=== PATIENT | male | born 1995 | race Two or more races ===

== ENCOUNTER 2017-01-05 20:30 | Emergency (ER) | payer SELFPAY ==
[2017-01-05 21:17] LABS: BASO % 0 % (0-3); EOS % 1 % (0-3); HEMATOCRIT 42.8 % (39.0-53.0); HEMOGLOBIN 14.5 g/dL (13.0-17.5); LYMPH # 1.9 x10^3/uL (1.0-4.8); LYMPH % 18 % (24-48); MEAN CORPUSCULAR HEMOGLOBIN 32 pg (25-35); MEAN CORPUSCULAR HGB CONC 34 g/dL (31-37); MEAN CORPUSCULAR VOLUME 95 fL (79-100); MONO % 6 % (0-9); NEUT % 74 % (31-73); PLATELET COUNT 164 x10^3/uL (140-400); RED BLOOD COUNT 4.52 x10^6/uL (4.30-5.70); RED CELL DISTRIBUTION WIDTH 14.3 % (11.5-14.5); WHITE BLOOD COUNT 10.5 x10^3/uL (4.0-11.0)
[2017-01-05 21:18] LABS: BILIRUBIN,URINE SMALL (NEG); GLUCOSE,URINE NEGATIVE (NEG); NITRITE,URINE NEGATIVE (NEG); PH,URINE 5.5; PROTEIN,URINE 30 mg/dL (NEG-TRACE); UROBILINOGEN,URINE 0.2 mg/dL (0.2 mg/dL)
[2017-01-05 21:24] LABS: BARBITURATES NEG (NEG); BENZODIAZEPINES POS (NEG); CANNABINOIDS NEG (NEG); COCAINE NEG (NEG); METHADONE NEG (NEG); OPIATES POS (NEG); PHENCYCLIDINE NEG (NEG)
[2017-01-05 21:27] LABS: CALCIUM 8.4 mg/dL (8.5-10.1); CREATININE 0.7 mg/dL (0.7-1.3); GFR 143.8
[2017-01-05 21:28] LABS: BACTERIA,URINE FEW /HPF (0-FEW); RBC,URINE OCC /HPF (0-2)
[2017-01-05] MEDS ORDERED: NALOXONE 0.4 MG/ML VIAL. IV ONE (21:30)
[2017-01-05] MEDS ORDERED: IV NORMAL SALINE 1000ML BAG 1,000 ML IV ONE (21:30)
[2017-01-05 21:34] LABS: ALBUMIN 4.2 g/dL (3.4-5.0); ALBUMIN/GLOBULIN RATIO 1.4 (1.0-1.7); TOTAL BILIRUBIN 0.5 mg/dL (0.2-1.0); TOTAL PROTEIN 7.2 g/dL (6.4-8.2)
[2017-01-05] MEDS ORDERED: POTASSIUM CHLORIDE 20 MEQ TABLET.ER. PO ONE (22:15)
[2017-01-05 23:56] VITALS: BP 109/57
--- NOTE | 2017-01-06 00:07 | PHYS DOC ---
Past Medical History Past Medical History: Anxiety Past Surgical History: No Surgical History Alcohol Use: None Drug Use: Heroin Adult General Chief Complaint Chief Complaint: ALTERED MENTAL STATUS HPI HPI Patient is a 21 year old gentleman who came in secondary to being found in his car unresponsive. Patient was given intranasal Narcan with some improvement in his symptoms prior to arrival to the ER. Upon arrival to the ER the patient is pretty somewhat however he is arousable. Patient denies any other symptomatology. Patient reports that he has gone through detox in the past and he recently started shooting up her when recently. Patient denies any fevers shakes chills nausea vomiting diarrhea chest pain shortness of breath cough cold runny nose. Patient denies any other new symptomatology. Patient denies any past medical history. Patient has any history of hypertension diabetes liver longer kidney pals. Patient reports she's on seroquel. Patient denies any trauma or any pains anywhere else. Patient's been reevaluated multiple times in the ER. Patient is more alert awake and conversant. Patient is so somnolent however he has no respiratory distress at this time. Patient is pulse oxing between 95-99% throughout his ER stay. K CK please have been at bedside secondary to DUI arrest. Review of systems: Constitutional: Denies fever or chills Eyes: Denies change in visual acuity, redness, or eye pain HENT: Denies nasal congestion or sore throat All other review systems are negative except as documented in the history of present illness portion. Physical exam: Constitutional: Well developed, well nourished, no acute distress, non-toxic appearance. HENT: Normocephalic, atraumatic, bilateral external ears normal, nose normal. Eyes: EOMI, conjunctiva normal, no discharge. Pupils are 2-3 mm bilaterally and reactive. Neck: Normal range of motion, no tenderness, supple, no stridor. Cardiovascular:Heart rate regular rhythm Lungs & Thorax: Bilateral breath sounds clear to auscultation no respiratory distress Abdomen: Bowel sounds normal, soft, no tenderness, no masses, no pulsatile masses. Skin: Warm, dry, no erythema, no rash. Back: No tenderness, no CVA tenderness. Extremities: No tenderness, no cyanosis, no clubbing, ROM intact, no edema. Neurologic: Alert and oriented X 3, normal motor function, normal sensory function, no focal deficits noted. Psychologic: Affect normal, judgement normal, mood normal. She has physical exam and ER significant for a patient being somnolent however easily arousable. Patient didn't know respiratory distress. Patient denies any other discomfort with palpating all his extremities. Patient's airway is intact. Patient has a normal gag reflex. Patient has no rash noted. Assessment and plan 21-year-old presented to the ER today after likely heroin overdose. Patient is declining assistance at this time with detox and rehabilitation. Patient has been given an additional 0.4 Narcan in the ED upon my initial evaluation secondary to his somnolence. Patient is been monitored in the ED for approximately 3 hours now without any airway issues. Patient's mother and girlfriend or his bedside. They are aware of his condition and his addiction. Patient will be clinically and hemodynamically stable for discharge to home with close follow-up. Patient has been given a prescription for Narcan nasal spray 4 mg per 0.1 mL's. I have discussed this with the patient's mother to utilize it if he should ever have an episode where he overdoses and he is not breathing. I instructed the mother that if she ever does need to use it that he must come to the ER for reevaluation. Mother is declining assistance with rehabilitation at this time. She reports that he was just released from rehabilitation one week ago. Mother reports that she is comfortable taking him home at this time and she will watch him at home. Mother will assure that she observes him over the next 12 hours so that he does not get a hold of any further her when her narcotics. Review of Systems Review of Systems Current Medications Current Medications Current Medications Medications (Trade) Dose Ordered Sig/Alfa Start Time Stop Time Status Last Admin Dose Admin Naloxone HCl (Narcan) 0.4 mg 1X ONCE 01/05/17 21:30 01/05/17 21:31 DC 01/05/17 21:19 0.4 MG Potassium Chloride (Klor-Con) 40 meq 1X ONCE 01/05/17 22:15 01/05/17 22:16 DC 01/05/17 22:07 40 MEQ Sodium Chloride 1,000 ml @ 1,000 mls/hr 1X ONCE 01/05/17 21:30 01/05/17 22:29 DC 01/05/17 21:19 1,000 MLS/HR Allergies Allergies Allergies Coded Allergies Type Severity Reaction Last Updated Verified No Known Drug Allergies 01/05/17 No Current Patient Data Vital Signs Vital Signs Date Time Temp Pulse Resp B/P (MAP) Pulse Ox O2 Delivery O2 Flow Rate FiO2 01/05/17 23:19 74 14 111/57 (75) 95 Room Air 01/05/17 20:30 98.0 98.0 Lab Values Laboratory Tests Test 01/05/17 21:00 01/05/17 21:05 White Blood Count 10.5 x10^3/uL (4.0-11.0) Red Blood Count 4.52 x10^6/uL (4.30-5.70) Hemoglobin 14.5 g/dL (13.0-17.5) Hematocrit 42.8 % (39.0-53.0) Mean Corpuscular Volume 95 fL (79-100) Mean Corpuscular Hemoglobin 32 pg (25-35) Mean Corpuscular Hemoglobin Concent 34 g/dL (31-37) Red Cell Distribution Width 14.3 % (11.5-14.5) Platelet Count 164 x10^3/uL (140-400) Neutrophils (%) (Auto) 74 % (31-73) H Lymphocytes (%) (Auto) 18 % (24-48) L Monocytes (%) (Auto) 6 % (0-9) Eosinophils (%) (Auto) 1 % (0-3) Basophils (%) (Auto) 0 % (0-3) Neutrophils # (Auto) 7.8 x10^3uL (1.8-7.7) H Lymphocytes # (Auto) 1.9 x10^3/uL (1.0-4.8) Monocytes # (Auto) 0.7 x10^3/uL (0.0-1.1) Eosinophils # (Auto) 0.0 x10^3/uL (0.0-0.7) Basophils # (Auto) 0.0 x10^3/uL (0.0-0.2) Sodium Level 140 mmol/L (136-145) Potassium Level 3.0 mmol/L (3.5-5.1) L Chloride Level 100 mmol/L (98-107) Carbon Dioxide Level 27 mmol/L (21-32) Anion Gap 13 (6-14) Blood Urea Nitrogen 7 mg/dL (8-26) L Creatinine 0.7 mg/dL (0.7-1.3) Estimated GFR (Cockcroft-Gault) 143.8 BUN/Creatinine Ratio 10 (6-20) Glucose Level 214 mg/dL (70-99) H Calcium Level 8.4 mg/dL (8.5-10.1) L Total Bilirubin 0.5 mg/dL (0.2-1.0) Aspartate Amino Transferase (AST) 21 U/L (15-37) Alanine Aminotransferase (ALT) 7 U/L (16-63) L Alkaline Phosphatase 94 U/L (46-116) Total Protein 7.2 g/dL (6.4-8.2) Albumin 4.2 g/dL (3.4-5.0) Albumin/Globulin Ratio 1.4 (1.0-1.7) Ethyl Alcohol Level < 10 mg/dL (0-10) Urine Collection Type Unknown Urine Color Yellow Urine Clarity Cloudy Urine pH 5.5 Urine Specific [place] 1.025 Urine Protein 30 mg/dL (NEG-TRACE) Urine Glucose (UA) Negative mg/dL (NEG) Urine Ketones (Stick) Trace mg/dL (NEG) Urine Blood Negative (NEG) Urine Nitrite Negative (NEG) Urine Bilirubin Small (NEG) Urine Urobilinogen Dipstick 0.2 mg/dL (0.2 mg/dL) Urine Leukocyte Esterase Negative (NEG) Urine RBC Occ /HPF (0-2) Urine WBC 1-4 /HPF (0-4) Urine Squamous Epithelial Cells None /LPF Urine Transitional Epithelial Cells Few /LPF Urine Bacteria Few /HPF (0-FEW) Urine Hyaline Casts Few /HPF Urine Mucus Mod /LPF Urine Opiates Screen Pos (NEG) Urine Methadone Screen Neg (NEG) Urine Barbiturates Neg (NEG) Urine Phencyclidine Screen Neg (NEG) Urine Amphetamine/Methamphetamine Neg (NEG) Urine Benzodiazepines Screen Pos (NEG) Urine Cocaine Screen Neg (NEG) Urine Cannabinoids Screen Neg (NEG) Urine Ethyl Alcohol Neg (NEG) Laboratory Tests 01/05/17 21:00 Laboratory Tests 01/05/17 21:00 EKG EKG [] Radiology/Procedures Radiology/Procedures [] Course & Med Decision Making Course & Med Decision Making Pertinent Labs and Imaging studies reviewed. (See chart for details) [] Dragon Disclaimer Dragon Disclaimer This electronic medical record was generated, in whole or in part, using a voice recognition dictation system. Departure Departure Impression: Primary Impression: Accidental heroin overdose Disposition: 01 HOME, SELF-CARE Condition: STABLE Referrals: NON,STAFF (PCP) Patient Instructions: Heroin Abuse and Withdrawal, Opiate Dependence Additional Instructions: Thank you for allowing us to participate in your care today. Followup with your primary care physician in 3 days if your symptoms do not improve. Call your Primary Doctor tomorrow and inform them of your visit today. If you do not have a primary care provider you can ask for a list of our primary care providers. Return to the emergency department you have any new or concerning findings. This should be evaluated by the primary care physician and any necessary consulting services for continued management within a few days after discharge. Return to emergency room if you have any new or concerning symptoms including but not limited to fever, chills, nausea, vomiting, intractable pain, any new rashes, chest pain, shortness of air, uncontrolled bleeding, difficulty breathing, and/or vision loss. You may have been prescribed medication that can change in your level of thinking and ability to operate machinery. These medications include hydrocodone and Ativan. Also, Benadryl has been known to do this as well. Be sure to check with your pharmacist and ask if the medications you've prescribed can affect your level of consciousness. I recommend not operating heavy machinery or driving while on medication such as these. He has been provided a prescription for Narcan to use in case he overdosed on a narcotic again. Please keep this somewhere close by to her son in case he should ask family overdose again. If he should ever need to utilize this medication he must come to the ER for further evaluation. Problem Qualifiers Primary Impression: Accidental heroin overdose Encounter type: initial encounter Qualified Codes: T40.1X1A - Poisoning by heroin, accidental (unintentional), initial encounter ALDEN MAYER MD Jan 06, 2017 00:07
--- NOTE | 2017-01-06 07:20 | EKG ---
[facility] [address] [place] [address] Test Date: 2017-01-05 Test Time: 20:35:47 Pat Name: JOSÉ GONZALEZ Department: Room: Gender: M Manager [employer]: : 1995 Requested By: ALDEN MAYER Order Number: [id number] Reading MD: Perlita Espinosa Measurements Intervals Roe Rate: 127 P: 56 MD: 120 QRS: 80 QRSD: 98 T: -40 QT: 258 QTc: 379 Interpretive Statements SINUS TACHYCARDIA LEFT ATRIAL ABNORMALITY ST & T ABNORMALITY, CONSIDER INFERIOR WALL ISCHEMIA Electronically Signed On 01-07-2017 19:52:00 CDT by Perlita Espinosa
== END 2017-01-06 00:15 | disposition home or self-care (01) ==
LOC: ER 20:30
DX: T40.1X1A Poisoning by heroin, accidental (unintentional), initial encounter (principal); R40.0 Somnolence; F41.9 Anxiety disorder, unspecified; Y92.89 Other specified places as the place of occurrence of the external cause
CPT/HCPCS: 36415; 80053; 80307; 81001; 85025; 93005; 96361; 96374; 99285; G0480; J2310; J7030; G0479